=== PATIENT | female | born 1950 | race Caucasian/White ===

== ENCOUNTER 2018-06-13 07:10 | Emergency (ER) | payer MEDICARE ==
--- NOTE | 2018-06-13 07:53 | RAD ---
XR Elbow Rt 4 View STANDARD History: [Pain] Comparison: None. Findings: No acute fracture or malalignment. No significant joint effusion. Soft tissues are unremarkable. Radial head and neck are intact. Impression: No acute fracture or malalignment.
[2018-06-13] MEDS ORDERED: Ibuprofen 800 MG TAB ONE (07:55)
== END 2018-06-13 08:29 | disposition home or self-care (01) ==
LOC: ERS 07:10
DX: M79.601 Pain in right arm (principal); I10 Essential (primary) hypertension; Z79.82 Long term (current) use of aspirin; Z79.899 Other long term (current) drug therapy

== ENCOUNTER 2018-12-27 13:10 | Outpatient (CLI) | payer MEDICARE ==
--- NOTE | 2018-12-27 15:32 | BD ---
Exam: DEXA Bone Density 12/27/18 HISTORY: Postmenopausal. Lumbar Spine: BMD (g/cm2) T-SCORE L1 0.980 -0.1 L2 1.088 +0.5 L3 1.181 +0.9 L4 1.284 +2.0 L1-L4 1.144 +0.9 Left Femoral Neck: 0.753 -0.9 Total Femur: 0.966 +0.2 Impression: Normal bone mineral density of the lumbar spine and left femoral neck. POS: [facility]
--- NOTE | 2019-01-04 13:04 | MMO ---
Bilateral MAMMO Bilat Screen [facility]. CLINICAL HISTORY: Patient is 68 years old and is seen for screening. The patient has the following family history of breast cancer: mother. The patient has no personal history of cancer. VIEWS: The views performed were: bilateral craniocaudal; bilateral craniocaudal with tomosynthesis; and bilateral mediolateral oblique with tomosynthesis. FILMS COMPARED: The present examination has been compared to prior imaging studies performed at [facility] on 12/08/2015, 12/21/2016 and 12/22/2017. This study has been interpreted with the assistance of computer-aided detection. MAMMOGRAM FINDINGS: There are scattered fibroglandular densities. There are no suspicious masses, suspicious calcifications, or new areas of architectural distortion. IMPRESSION: THERE IS NO MAMMOGRAPHIC EVIDENCE OF MALIGNANCY. A ROUTINE FOLLOW-UP MAMMOGRAM IN 1 YEAR IS RECOMMENDED. THE RESULTS OF THIS EXAM WERE SENT TO THE PATIENT. ACR BI-RADS Category 1 - Negative MAMMOGRAPHY NOTE: 1. A negative mammogram report should not delay a biopsy if a dominant of clinically suspicious mass is present. 2. Approximately 10% to 15% of breast cancers are not detected by mammography. 3. Adenosis and dense breasts may obscure an underlying neoplasm. Reported by: JONATHAN DELATORRE MD Electonically Signed: [id number]
== END 2018-12-27 13:11 | disposition home or self-care (01) ==
LOC: BICMAMMO 13:10
PROVIDERS: ATTEND Internal Medicine
DX: Z12.31 Encounter for screening mammogram for malignant neoplasm of breast (principal); Z13.820 Encounter for screening for osteoporosis; Z78.0 Asymptomatic menopausal state; Z80.3 Family history of malignant neoplasm of breast
CPT/HCPCS: 77063; 77067; 77080

== ENCOUNTER 2020-01-08 07:50 | Outpatient (CLI) | payer MEDICARE ==
--- NOTE | 2020-01-08 08:49 | MMO ---
Bilateral MAMMO Bilat Screen [facility]. CLINICAL HISTORY: Patient is 69 years old and is seen for screening. The patient has the following family history of breast cancer: mother. The patient has no personal history of cancer. VIEWS: The views performed were: bilateral craniocaudal with tomosynthesis and bilateral mediolateral oblique with tomosynthesis. FILMS COMPARED: The present examination has been compared to prior imaging studies performed at [facility] on 12/08/2015, 12/21/2016 and 12/22/2017, and at [facility] on 12/27/2018. This study has been interpreted with the assistance of computer-aided detection. MAMMOGRAM FINDINGS: There are scattered fibroglandular densities. There are no suspicious masses, suspicious calcifications, or new areas of architectural distortion. IMPRESSION: THERE IS NO MAMMOGRAPHIC EVIDENCE OF MALIGNANCY. A ROUTINE FOLLOW-UP MAMMOGRAM IN 1 YEAR IS RECOMMENDED. THE RESULTS OF THIS EXAM WERE SENT TO THE PATIENT. ACR BI-RADS Category 1 - Negative MAMMOGRAPHY NOTE: 1. A negative mammogram report should not delay a biopsy if a dominant of clinically suspicious mass is present. 2. Approximately 10% to 15% of breast cancers are not detected by mammography. 3. Adenosis and dense breasts may obscure an underlying neoplasm. Reported by: RYAN GAYTAN MD Electonically Signed: [id number]
== END 2020-01-08 07:51 | disposition home or self-care (01) ==
LOC: BICMAMMO 07:50
PROVIDERS: ATTEND Internal Medicine
DX: Z12.31 Encounter for screening mammogram for malignant neoplasm of breast (principal); Z80.3 Family history of malignant neoplasm of breast
CPT/HCPCS: 77063; 77067

== ENCOUNTER 2021-01-09 08:04 | Outpatient (CLI) | payer MEDICARE | END 2021-01-09 08:05 | disposition home or self-care (01) | LOC: BICMAMMO 08:04 | PROVIDERS: ATTEND Internal Medicine | DX: Z12.31 Encounter for screening mammogram for malignant neoplasm of breast (principal); Z13.820 Encounter for screening for osteoporosis; Z78.0 Asymptomatic menopausal state; Z80.3 Family history of malignant neoplasm of breast | CPT/HCPCS: 77063; 77067; 77080 ==

== ENCOUNTER 2022-02-15 13:51 | Outpatient (CLI) | payer MEDICARE | END 2022-02-15 13:52 | disposition home or self-care (01) | LOC: BICMAMMO 13:51 | PROVIDERS: ATTEND Internal Medicine | DX: Z12.31 Encounter for screening mammogram for malignant neoplasm of breast (principal); R92.8 Other abnormal and inconclusive findings on diagnostic imaging of breast; Z80.3 Family history of malignant neoplasm of breast | CPT/HCPCS: 77063; 77067 ==

== ENCOUNTER 2022-02-24 12:57 | Outpatient (CLI) | payer MEDICARE | END 2022-02-24 12:58 | disposition home or self-care (01) | LOC: BICMAMMO 12:57 | PROVIDERS: ATTEND Internal Medicine | DX: N63.10 Unspecified lump in the right breast, unspecified quadrant (principal) | CPT/HCPCS: 76642; 77065; G0279 ==

== ENCOUNTER 2024-03-02 07:32 | Outpatient (CLI) | payer MEDICARE | END 2024-03-02 07:33 | disposition home or self-care (01) | LOC: BICMAMMO 07:32 | PROVIDERS: ATTEND Internal Medicine | DX: Z12.31 Encounter for screening mammogram for malignant neoplasm of breast (principal); Z80.3 Family history of malignant neoplasm of breast | CPT/HCPCS: 77063; 77067 ==

== ENCOUNTER 2025-03-04 14:46 | Outpatient (CLI) | payer MEDICARE | END 2025-03-04 14:47 | disposition home or self-care (01) | LOC: BICMAMMO 14:46 | PROVIDERS: ATTEND Internal Medicine | DX: Z12.31 Encounter for screening mammogram for malignant neoplasm of breast (principal); Z80.3 Family history of malignant neoplasm of breast | CPT/HCPCS: 77063; 77067 ==